=== PATIENT | male | born 1960 | race Caucasian/White ===

== ENCOUNTER 2016-06-26 17:25 | Emergency (ER) | payer OTHER ==
[2016-06-26] MEDS ORDERED: Amoxicillin/Clavulanate K 875-125 MG Tab ONE (17:30)
[2016-06-26 17:57] VITALS: BP 144/74
--- NOTE | 2016-06-26 21:29 | EDM.PDOC ---
ED HPI GENERAL MEDICAL PROBLEM - General Chief Complaint: Laceration Stated Complaint: lEFT hAND LACERATION Time Seen by Provider: 06/26/16 17:30 Source of Information: Reports: Patient History Limitations: Reports: No Limitations - History of Present Illness INITIAL COMMENTS - FREE TEXT/NARRATIVE: According to patient he was cutting some base board with electric saw and accidentally got his left hand cut. The cut was over the left hand dorsum. Able to make fist and has good mobility in his fingers. No tingling or numbness in the hand or finger. No other injuries. Pt claims that his last tetanus shot was 1 and 1/2 years ago. No other complaints. Onset: Today Severity: Moderate Improves with: Reports: None Worsens with: Reports: None Associated Symptoms: Denies: Confusion, Chest Pain, Fever/Chills, Headaches, Nausea/Vomiting, Shortness of Breath, Weakness 3 Pain Score (Numeric/FACES): 4 - Related Data Allergies Allergy/AdvReac Type Severity Reaction Status Date / Time No Known Allergies Allergy Verified 06/26/16 17:36 Home Meds: Home Meds Simvastatin [Zocor] 20 mg PO DAILY 06/26/16 [History] Past Medical History - Past Health History Medical/Surgical History: Denies Medical/Surgical History - Infectious Disease History Infectious Disease History: Reports: None Social & Family History - Family History Family Medical History: Noncontributory ED ROS GENERAL - Review of Systems Review Of Systems: See Below Constitutional: Denies: Fever, Chills HEENT: Denies: Rhinitis, Sinus Problem, Throat Pain Respiratory: Denies: Cough, Sputum Cardiovascular: Denies: Chest Pain, Other GI/Abdominal: Denies: Nausea, Vomiting Musculoskeletal: Denies: Foot Pain, Joint Pain, Joint Swelling Skin: Denies: Pruritis, Rash Neurological: Denies: Numbness, Tingling, Weakness ED EXAM, SKIN/RASH Exam: See Below Exam Limited By: No Limitations General Appearance: Alert, WD/WN, No Apparent Distress Eye Exam: Bilateral Eye: EOMI, PERRL Ears: Normal External Exam, Normal Canal, Hearing Grossly Normal, Normal TMs Nose: Normal Inspection, Normal Mucosa, No Blood Throat/Mouth: Normal Inspection, Normal Lips, Normal Teeth, Normal Gums, Normal Oropharynx, Normal Voice, No Airway Compromise Head: Atraumatic, Normocephalic Neck: Normal Inspection, Supple, Non-Tender, Full Range of Motion Respiratory/Chest: No Respiratory Distress, Lungs Clear, Normal Breath Sounds, No Accessory Muscle Use, Chest Non-Tender Cardiovascular: Normal Peripheral Pulses, Regular Rate, Rhythm, No Edema, No Gallop, No JVD, No Murmur, No Rub Skin: Warm, Intact, Other (Left hand: there is a 5 cm long laceration over the dosrum of the hand, which is over the ulnar margin of the hand just distal to the wrist. the laceration extends into the subcutaneous tissue. No tendon or muscle injury. Normal neurovascular exam of the hand. 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.) ED SKIN PROCEDURES - Laceration/Wound Repair Left Medial Dorsal Hand Lac/wound length in cm: 5 Appearance: subcutaneous Distal NVT: neuro & vascular intact, no tendon injury Anesthetic Type: local Local anesthesia - Lidocaine (Xylocaine): 1% plain Local anesthetic volume: 3cc Skin prep: providone-iodine (betadine) Exploration/Debridement/Repair: wound explored Closed with: sutures Suture size: 4-0 # of sutures: 10 Suture type: other (ethilon) Suture size: other (5 O) # of sutures: 10 Sterile dressing applied: provider Tetanus status addressed: Yes Complications: No Progress/Comments: wrsit splint applied. Course - Vital Signs Text/Narrative:: Pt reassured that the laceration extends into the subcutaneous tissue. There is no tendon or muscle injury. After consent was obtained, wound was cleaned, explored, closed in layers as described in procedure. Pressure dressing applied. As the wound is close to wrist, to prevent mobility wrist splint applied. Pt advised to keep the dressing on for 2 days. avoid wetting the wound for 72 hrs. cold compresses 2-3 times daily. Elevate the extremity for next 24 hrs to prevent pain and swelling. Also as the wound is over the hand and deep, started on augmentin 875mg BID. Wound care and precautions discussed with patient and his spouse. Advised to followup with his PCP on Tuesday for wound check.. Last Recorded V/S: Last Vital Signs Temp 98 F 06/26/16 17:56 Pulse 64 06/26/16 17:56 Resp 16 06/26/16 17:56 BP 144/74 H 06/26/16 17:56 Pulse Ox 100 06/26/16 17:56 Departure - Departure Time of Disposition: 18:00 Disposition: Home, Self-Care 01 Condition: good Clinical Impression: Hand laceration - Discharge Information Instructions: Laceration Care, Adult, Amoxicillin; Clavulanic Acid extended- release tablets Referrals: PCP,None [Primary Care Provider] - Forms: ED Department Discharge Care Plan Goals: Leave dressing on x 48 hours. Keep dry. Change daily after that applying neosporine or similar ointment. Wear brace for at least 48 hours. Keep hand elevated and apply cold packs 10 to 15 minutes 3 to 4 x day. See health care provider on Tuesday to have him assess. Return to ER/clinic immediately with signs of infection. Take Augmentin 2 x day until gone. Take aleve 500mg bid if necessary or motrin 600mg 3 x day if necessary for pain. Have sutures removed in 10 days by health care provider. - Problem List & Annotations (1) Hand laceration SNOMED Code(s): 215631577 Code(s): S61.419A - LACERATION WITHOUT FOREIGN BODY OF UNSP HAND, INIT ENCNTR Status: Acute - Problem List Review Problem List Initiated/Reviewed/Updated: Yes - Assessment/Plan Assessment:: 5 cms left hand laceration Plan: Pt reassured that the laceration extends into the subcutaneous tissue. There is no tendon or muscle injury. After consent was obtained, wound was cleaned, explored, closed in layers as described in procedure. Pressure dressing applied. As the wound is close to wrist, to prevent mobility wrist splint applied. Pt advised to keep the dressing on for 2 days. avoid wetting the wound for 72 hrs. cold compresses 2-3 times daily. Elevate the extremity for next 24 hrs to prevent pain and swelling. Also as the wound is over the hand and deep, started on augmentin 875mg BID. Wound care and precautions discussed with patient and his spouse. Advised to followup with his PCP on Tuesday for wound check..
== END 2016-06-26 18:15 | disposition home or self-care (01) ==
LOC: LB.ED 17:25
DX: S61.412A Laceration without foreign body of left hand, initial encounter (principal); W26.8XXA Contact with other sharp object(s), not elsewhere classified, initial encounter
CPT/HCPCS: 12002; 99283; A9270; 12001